=== PATIENT | female | born 1995 | race Caucasian/White ===

== ENCOUNTER 2022-08-19 18:28 | Emergency (ER) | payer OTHER | END 2022-08-19 19:58 | disposition left against medical advice (07) | LOC: CSHERS 18:28 | DX: Z53.21 Procedure and treatment not carried out due to patient leaving prior to being seen by health care provider (principal) ==

== ENCOUNTER 2023-01-11 20:53 | Day surgery (SDC) | payer OTHER, BC ==
[2023-01-11] MEDS ORDERED: hydrALAZINE 20 MG/ML VIAL SLOW IVP PRN (22:09)
[2023-01-11 22:34] LABS: Bilirubin Neg (Negative); Blood, Urine 150 (Negative); Clarity Clear (Clear); Glucose, Urine (Dipstick) Normal (Negative); Ketone, Urine Negative (Negative); Leukocyte Negative (Negative); Nitrite Negative (Negative); Protein, Urine (Dipstick) Negative (Neg-Trace); Specific Gravity, Urine 1.025 (1.005-1.030); Urobilinogen Normal mg/dL (Less than 2)
[2023-01-11 22:52] LABS: Bacteria/HPF Rare-Few HPF (None Seen); CAUTI Indications for Culture Pregnancy; Squamous Epithelial 0-3 HPF (0-3); WBC/HPF 0-3 HPF (0-3)
[2023-01-11 22:55] LABS: Urine Culture Reflex Yes Yes
[2023-01-12 00:38] VITALS: BMI 27.1
== END 2023-01-12 00:40 | disposition home or self-care (01) ==
LOC: CSHLD/OP 20:53
PROVIDERS: ATTEND Obstetrics & Gynecology
DX: O26.852 Spotting complicating pregnancy, second trimester (principal); O23.42 Unspecified infection of urinary tract in pregnancy, second trimester; N39.0 Urinary tract infection, site not specified; Z3A.27 27 weeks gestation of pregnancy; Z88.0 Allergy status to penicillin
CPT/HCPCS: 76815; 81001; 87086; 99283

== ENCOUNTER 2023-03-31 05:20 | Inpatient (IN) | payer BC, OTHER ==
[2023-03-28 10:39] LABS: Hematocrit 35.3 % (34.9-44.5); Hemoglobin 11.9 g/dL (12.0-15.5); Platelet Count 183 10x3/uL (150-450)
[2023-03-28 11:13] LABS: HBSAg Index 0.13 S/CO (0-0.99); HIV (1/2) Antibody/Antigen Non-Reactive (NonReactive); HIV 1/2 INDEX 0.08 S/CO (<1.00); Hep B Surf Ag Non-Reactive S/CO (NonReactive)
[2023-03-28 11:14] LABS: Syphilis Antibody Nonreactive (Nonreactive); Syphilis Antibody Index 0.13 S/CO (<1.00 Non-Reactive)
[2023-03-31 06:04] VITALS: BMI 29.3
[2023-03-31] MEDS ORDERED: Ondansetron PF 4 MG/2 ML Vial IVP PRN ×4 (06:39→11:02)
[2023-03-31] MEDS ORDERED: Promethazine HCl 25 MG/ML VIAL IM PRN ×2 (06:39→09:56)
[2023-03-31] MEDS ORDERED: Oxytocin 30 units/NS 500 ML 500 ML IV SCH (06:39)
[2023-03-31] MEDS ORDERED: Diphenoxylate HCl/Atropine Tablet PO PRN ×2 (06:39)
[2023-03-31] MEDS ORDERED: Bicitra 30 ML UDCUP PO PRN (06:39)
[2023-03-31] MEDS ORDERED: Lactated Ringer's 1,000 ML IV SCH (06:39)
[2023-03-31] MEDS ORDERED: Misoprostol 200 MCG TAB PR PRN (06:39)
[2023-03-31] MEDS ORDERED: hydrALAZINE 20 MG/ML VIAL SLOW IVP PRN ×2 (06:39→11:02)
[2023-03-31] MEDS ORDERED: Famotidine/PF 20 mg/2ml Vial SLOW IVP PRN (06:39)
[2023-03-31] MEDS ORDERED: Clindamycin/D5W 900 MG in Premix 1 BAG IVPB SCH (06:39)
[2023-03-31] MEDS ORDERED: Carboprost 250 MCG/ML AMP IM PRN (06:39)
[2023-03-31] MEDS ORDERED: Morphine PF 10 MG/10 ML VIAL ONE (06:50)
[2023-03-31] MEDS ORDERED: fentaNYL 50 mcg/mL 1 mL Vial ONE (06:50)
[2023-03-31] MEDS ORDERED: Ondansetron PF 4 MG/2 ML Vial ONE (06:51)
[2023-03-31] MEDS ORDERED: Oxytocin 10 UNITS/ML VIAL ONE (06:51)
[2023-03-31] MEDS ORDERED: Dexamethasone 4 mg/ml Vial ONE (06:51)
[2023-03-31] MEDS ORDERED: Gentamicin Sulfate 120 MG in Premix 1 BAG IVPB SCH (07:00)
[2023-03-31] MEDS ORDERED: Phenylephrine 10 MG/ML VIAL ONE (07:28)
[2023-03-31] MEDS ORDERED: PHENYLEPHRINE-NS 100 MCG/ML 10 ML SYRINGE ONE (07:28)
[2023-03-31] MEDS ORDERED: Ketorolac Tromethamine 30 MG/ML VIAL ONE (09:37)
[2023-03-31] MEDS ORDERED: Naloxone HCl 0.4 mg/ml Vial IVP PRN ×2 (09:56)
[2023-03-31] MEDS ORDERED: fentaNYL 50 mcg/mL 1 mL Vial SLOW IVP PRN (09:56)
[2023-03-31] MEDS ORDERED: Meperidine HCl/PF 25 MG/ML VIAL SLOW IVP PRN (09:56)
[2023-03-31] MEDS ORDERED: Promethazine HCl 25 MG SUPP PR PRN (09:56)
[2023-03-31] MEDS ORDERED: HYDROmorphone 0.5 MG/0.5 ML SYRINGE SLOW IVP PRN (09:56)
[2023-03-31] MEDS ORDERED: diphenhydrAMINE 50 MG/ML VIAL IVP PRN (09:56)
[2023-03-31] MEDS ORDERED: Moisturizing Cream (Eucerin) 113 GM JAR TOP PRN (09:56)
[2023-03-31] MEDS ORDERED: Naloxone HCl 0.4 mg/ml Vial IV PRN (09:56)
[2023-03-31] MEDS ORDERED: Communication Order-Pharmacy FS SCH (10:00)
[2023-03-31] MEDS ORDERED: Ketorolac Tromethamine 30 MG/ML VIAL IVP SCH (10:00)
[2023-03-31] MEDS ORDERED: HYDROcodone/Acetaminophen 5/325 mg Tablet PO PRN ×2 (11:02→22:00)
[2023-03-31] MEDS ORDERED: Methylergonovine 0.2 MG/ML VIAL IM PRN (11:02)
[2023-03-31] MEDS ORDERED: Acetaminophen 325 MG TAB PO PRN (11:02)
[2023-03-31] MEDS ORDERED: diphenhydrAMINE 25 MG CAP PO PRN (11:02)
[2023-03-31] MEDS ORDERED: Boostrix 0.5 ML (Tdap) VIAL (>/=7 yrs of age) IM ONE (11:02)
[2023-03-31] MEDS ORDERED: Bisacodyl 10 MG SUPP PR PRN (11:02)
[2023-03-31] MEDS ORDERED: Lanolin Ointment 7 GM TUBE TOP PRN (11:02)
[2023-03-31] MEDS: Ketorolac Tromethamine 30 MG/ML VIAL IVP PRN ×2 (15:19→21:28)
[2023-03-31] MEDS: Simethicone Chewable 80 MG TAB PO PRN ×2 (15:19→21:45)
[2023-03-31] MEDS: Docusate 100 MG CAP PO SCH (21:28)
[2023-04-01] MEDS: Ketorolac Tromethamine 30 MG/ML VIAL IVP PRN (04:20)
[2023-04-01 04:40] LABS: Hematocrit 30.9 % (34.9-44.5); Hemoglobin 10.2 g/dL (12.0-15.5); Mean Corpuscular Hemoglobin 31.3 pg (27.0-33.0); Mean Corpuscular Volume 94.8 fl (81.6-98.3); Mean Platelet Volume 11.9 fl (7.4-10.4); Platelet Count 170 10x3/uL (150-450); RBC Distribution Width 13.2 % (11.5-14.5); Red Blood Cell (RBC) Count 3.26 10x6/uL (3.90-5.03); White Blood Cell (WBC) Count 11.3 10x3/uL (3.5-10.5)
[2023-04-01] MEDS: Ferrous Sulfate 325 MG TAB PO SCH ×3 (05:30→15:10)
[2023-04-01] MEDS: Docusate 100 MG CAP PO SCH ×2 (07:59→21:05)
[2023-04-01] MEDS: Prenatal Vitamin 1 TAB PO SCH (07:59)
[2023-04-01] MEDS: HYDROcodone/Acetaminophen 5/325 mg Tablet PO PRN ×3 (07:59→16:03)
[2023-04-01] MEDS: Ibuprofen 800 MG TAB PO SCH ×2 (14:19→21:05)
[2023-04-02] MEDS: HYDROcodone/Acetaminophen 5/325 mg Tablet PO PRN ×3 (00:53→13:08)
[2023-04-02] MEDS: Ibuprofen 800 MG TAB PO SCH ×2 (05:38→13:08)
[2023-04-02] MEDS: Ferrous Sulfate 325 MG TAB PO SCH (07:09)
[2023-04-02 07:48] VITALS: BP 132/81; TEMP 98.6
[2023-04-02] MEDS: Prenatal Vitamin 1 TAB PO SCH (07:55)
[2023-04-02] MEDS: Docusate 100 MG CAP PO SCH (07:55)
[2023-04-02] MEDS ORDERED: Sertraline 25 MG TAB PO SCH (09:00)
== END 2023-04-02 15:20 | disposition home or self-care (01) | DRG 788 ==
LOC: CSHLD 05:20 → CSHPP 11:18
PROVIDERS: ADMIT Obstetrics & Gynecology; ATTEND Obstetrics & Gynecology
PROC: 10D00Z1 Extraction of Products of Conception, Low, Open Approach (ICD-10-PCS; principal; 2023-03-31)
DX: O34.211 Maternal care for low transverse scar from previous cesarean delivery (principal); Z3A.39 39 weeks gestation of pregnancy; Z37.0 Single live birth; O99.824 Streptococcus B carrier state complicating childbirth; O99.02 Anemia complicating childbirth; D64.9 Anemia, unspecified; Z88.0 Allergy status to penicillin
CPT/HCPCS: 36415; 51702; 85014; 85018; 85027; 85049; 86780; 86850; 86900; 86901; 87340; 87389; J1100; J1885; J2274; J2370; J2405; J2590; J3010; J3490; J7120; S0028

== ENCOUNTER 2023-04-25 14:31 | Emergency (ER) | payer BC, OTHER | END 2023-04-25 19:20 | disposition home or self-care (01) | LOC: CSHERS 14:31 | DX: B37.89 Other sites of candidiasis (principal) | CPT/HCPCS: 99283 ==

== ENCOUNTER 2024-03-03 22:11 | Emergency (ER) | payer BC, OTHER ==
[~2024-03-03 22:11] MED LIST: Iopamidol 300 61% 100 ML VIAL FS ONE
[2024-03-03] MEDS ORDERED: Ketorolac Tromethamine 30 MG (1 mL) VIAL ONE (22:50)
[2024-03-03] MEDS ORDERED: Pantoprazole 40 MG VIAL ONE (22:50)
[2024-03-03] MEDS ORDERED: Ondansetron PF 4 MG/2 ML Vial ONE (22:50)
[2024-03-03 23:26] LABS: BHCG - Serum Negative (NEGATIVE); Pregs Control Background? CLEAR/WHITE (CLR/WHITE); Pregs Control Bar Appear? YES (CONTROL BAR)
[2024-03-03 23:34] LABS: ALT (SGPT) 15 U/L (8-55); AST (SGOT) 15 U/L (5-34); Albumin 3.9 g/dL (3.5-5.0); Alkaline Phosphatase 201 U/L (40-110); Anion Gap 14 mmol/L (10-20); BUN (Urea Nitrogen) 20 mg/dL (7.0-18.7); Bilirubin, Total 0.2 mg/dL (0.2-1.2); Calc. Creatinine Clearance 0 mL/min (70-130); Calcium 9.5 mg/dL (7.8-10.44); Carbon Dioxide 22 mmol/L (22-29); Chloride 109 mmol/L (98-107); Estimated GFR 113; Globulin 3.3 g/dL (2.4-3.5); Glucose 99 mg/dL (70-105); Lipase 39 U/L (8-78); Potassium 3.9 mmol/L (3.5-5.1); Protein, Total 7.2 g/dL (6.0-8.3); Sodium 141 mmol/L (136-145)
[2024-03-03 23:47] LABS: #Basophils 0.03 10x3/uL (0.0-0.2); #Eosinphils 0.15 10x3/uL (0.0-0.5); #Monocytes 0.53 10x3/uL (0.0-1.1); #Neutrophils 3.68 10x3/uL (1.5-8.4); %Basophils 0.4 % (0.0-2.0); %Eosinophils 2.1 % (0.0-6.0); %Monocytes 7.4 % (0.0-10.0); Hematocrit 35.7 % (34.9-44.5); Hemoglobin 11.3 g/dL (12.0-15.5); Mean Corpuscular HGB CONC 31.7 g/dL (32.0-36.0); Mean Corpuscular Hemoglobin 29.3 pg (27.0-33.0); Mean Corpuscular Volume 92.5 fL (81.6-98.3); Mean Platelet Volume 11.4 fL (7.4-10.4); Platelet Count 191 10x3/uL (150-450); RBC Distribution Width 12.1 % (11.5-14.5); Red Blood Cell (RBC) Count 3.86 10x6/uL (3.90-5.03); White Blood Cell (WBC) Count 7.2 10x3/uL (3.5-10.5)
[2024-03-03 23:47] LABS: Bilirubin Neg (Negative); Blood, Urine Negative (Negative); Clarity Clear (Clear); Glucose, Urine (Dipstick) Normal (Negative); Ketone, Urine Negative (Negative); Leukocyte Negative (Negative); Nitrite Negative (Negative); Protein, Urine (Dipstick) 15 mg/dl (Neg-Trace); Urobilinogen Normal mg/dL (Less than 2); pH, Urine 6.5 (5.0-9.0)
[2024-03-04 00:11] LABS: Bacteria/HPF 1+ HPF (None Seen); CAUTI Indications for Culture Pelvic or flank pain; RBC/HPF 0-3 HPF (0-3); WBC/HPF 0-3 HPF (0-3)
[2024-03-04 00:12] LABS: Urine Culture Reflex No No
== END 2024-03-04 00:39 | disposition home or self-care (01) ==
LOC: CSHERS 22:11
DX: K29.70 Gastritis, unspecified, without bleeding (principal); R10.13 Epigastric pain
CPT/HCPCS: 36415; 74177; 80053; 81001; 83690; 84703; 85025; 96361; 96374; 96375; J1885; J2405; J2470; Q9967

== ENCOUNTER 2024-05-24 11:21 | Outpatient (CLI) | payer BC, OTHER ==
[2024-05-24 11:56] LABS: Hematocrit 40.6 % (34.9-44.5)
[2024-05-24 12:02] LABS: BHCG - Serum Negative (NEGATIVE); Pregs Control Background? CLEAR/WHITE (CLR/WHITE); Pregs Control Bar Appear? YES (CONTROL BAR)
== END 2024-05-24 11:22 | disposition home or self-care (01) ==
LOC: CSHLAB 11:21
PROVIDERS: ATTEND Otolaryngology Plastic Surgery within the Head & Neck
DX: Z01.812 Encounter for preprocedural laboratory examination (principal); J34.3 Hypertrophy of nasal turbinates; J32.4 Chronic pansinusitis; J33.9 Nasal polyp, unspecified
CPT/HCPCS: 84703; 85014

== ENCOUNTER 2024-05-26 12:04 | Day surgery (SDC) | payer BC, OTHER ==
[2024-05-24 11:58] VITALS: BMI 24.4
[2024-05-26] MEDS ORDERED: AFRIN NASAL MIST 15 ML BOT ONE (12:12)
[2024-05-26] MEDS ORDERED: Ondansetron PF 4 MG/2 ML Vial ONE (13:42)
[2024-05-26] MEDS ORDERED: PROPOFOL 20 ML ONE (13:47)
[2024-05-26] MEDS ORDERED: Midazolam HCl 2 mg/2 ml Vial ONE (13:47)
[2024-05-26] MEDS ORDERED: fentaNYL 50 mcg/mL 1 mL Vial ONE ×3 (13:47→16:05)
[2024-05-26] MEDS ORDERED: Lidocaine 1% PF 5 ML VIAL ONE (13:47)
[2024-05-26] MEDS ORDERED: Dexamethasone 20 MG/5 ML VIAL ONE (13:47)
[2024-05-26] MEDS ORDERED: Oxymetazoline HCl 0.05% ( 15 ML ) ONE (15:12)
[2024-05-26] MEDS ORDERED: HYDROcodone/Acetaminophen 5/325 mg Tablet ONE (17:04)
== END 2024-05-26 17:50 | disposition home or self-care (01) ==
LOC: CSHSDC 12:04
PROVIDERS: ATTEND Otolaryngology Plastic Surgery within the Head & Neck
DX: J32.4 Chronic pansinusitis (principal); J33.9 Nasal polyp, unspecified; J30.9 Allergic rhinitis, unspecified; J34.3 Hypertrophy of nasal turbinates; F32.A Depression, unspecified; Z87.59 Personal history of other complications of pregnancy, childbirth and the puerperium; Z88.0 Allergy status to penicillin; Z79.2 Long term (current) use of antibiotics; Z79.51 Long term (current) use of inhaled steroids; Z79.899 Other long term (current) drug therapy
CPT/HCPCS: J1100; J2250; J2405; J2704; J3010